=== PATIENT | male | born 1955 | race Caucasian/White ===

== ENCOUNTER 2019-03-17 08:47 | Day surgery (SDC) | payer OTHER ==
[~2019-03-17] VITALS: Ht 167.6 cm; Wt 99.9 kg
[2019-03-17] VITALS (8 sets, daily range): BP systolic 119–168; BP diastolic 60–91; PULSE 51–62; RESP 16–25; Ht 167.6 cm; Wt 99.9 kg
[2019-03-17] MEDS ORDERED: BENA40TA56 PO (09:57)
[2019-03-17] MEDS ORDERED: ATOR20TA38 PO (10:01)
[2019-03-17] MEDS ORDERED: FENO145T37 PO (10:01)
[2019-03-17] MEDS ORDERED: ATEN100T PO (10:01)
[2019-03-17] MEDS ORDERED: FEBU40TA PO (10:01)
[2019-03-17] MEDS ORDERED: ENZA40CA PO (10:01)
[2019-03-17] MEDS ORDERED: AMLO-147 PO (10:01)
[2019-03-17] MEDS ORDERED: BICA50TA47 PO (10:01)
[2019-03-17] MEDS ORDERED: LEVO100T8 PO (10:01)
[2019-03-17] MEDS ORDERED: CEFAZOLIN 1 GM/50 ML (PMX) 50 ML IVPB ONE ×2 (11:02→11:30)
[2019-03-17] MEDS ORDERED: HEPARIN 1000 UNITS/ML 10 ML INJ ONE (11:03)
[2019-03-17] MEDS ORDERED: LIDOCAINE 1%/EPI (1:100,000) (MDV) 20 ML ONE (11:03)
[2019-03-17] MEDS ORDERED: FENTAnyl 50 MCG/ML VIAL ONE (11:03)
[2019-03-17] MEDS ORDERED: MIDAZOLAM 1 MG/ML 2 ML INJ ONE (11:03)
[2019-03-17] MEDS ORDERED: POLYMYXIN/BACITRACIN 1L IRRIG IRR ONE (11:30)
[2019-03-17] MEDS ORDERED: hydrALAzine 20 MG INJ ONE (12:07)
== END 2019-03-17 15:51 | disposition home or self-care (01) ==
LOC: SDS 08:47 → RAD 08:47
PROVIDERS: ATTEND Internal Medicine Hematology & Oncology
DX: C61 Malignant neoplasm of prostate (principal)
CPT/HCPCS: 36561; 76942; C1788; J0360; J0690; J1644; J2250; J3010